=== PATIENT | male | born 1985 | race Two or more races ===

== ENCOUNTER 2024-03-29 13:50 | Emergency (ER) | payer OTHER ==
[~2024-03-29] VITALS: Ht 172.7 cm; Wt 68.0 kg
[2024-03-29] MEDS ORDERED: DEXAMETHASONE SODIUM PHOSPHATE 4 MG/ML VIAL IM STA (18:17)
[2024-03-29] MEDS ORDERED: ORPHENADRINE CITRATE 30 MG/ML AMPUL IM STA (18:18)
[2024-03-29 18:52] LABS: HEMATOCRIT 44.8 % (39.0-48.0); HEMOGLOBIN 14.9 g/dL (13-16.00); MEAN CELL VOLUME 85.2 fL (80.0-100.00); MEAN CORPUSCULAR HEMOGLOBIN 28.3 pg (27.00-32.0); MEAN CORPUSCULAR HGB CONC 33.2 g/dl (32.0-36.0); PLATELET COUNT 261 K/uL (150-450); RED BLOOD COUNT 5.26 M/uL (4.00-6.00); RED CELL DISTRIBUTION WIDTH 13.8 % (11.5-14.5)
[2024-03-29] MEDS ORDERED: CLARITIN10 M1 PO (19:08)
[2024-03-29] MEDS ORDERED: DEXAMETHASONE6 MG PO (19:10)
== END 2024-03-29 19:29 | disposition home or self-care (01) ==
LOC: ER 13:52
DX: L50.9 Urticaria, unspecified (principal)